=== PATIENT | female | born 1960 | race Caucasian/White ===

== ENCOUNTER → 2018-05-14 10:43 | Outpatient (CLI) | payer OTHER, SELFPAY ==
--- NOTE | 2018-05-14 | DI.MG.S_ITS ---
BILATERAL DIGITAL SCREENING MAMMOGRAM 3D/2D WITH CAD: 05/14/2018 CLINICAL: Routine screening. Comparison is made to exams dated: 04/20/2017 mammogram, 03/08/2016 mammogram, and 08/25/2015 mammogram - [facility]. The tissue of both breasts is heterogeneously dense. This may lower the sensitivity of mammography. Current study was also evaluated with a Computer Aided Detection (CAD) system. No significant masses, calcifications, or other findings are seen in either breast. There has been no significant interval change. IMPRESSION: NEGATIVE There is no mammographic evidence of malignancy. A 1 year screening mammogram is recommended. This exam was interpreted at Station ID: [id number]. NOTE: For mammograms, a report in lay terms will be sent to the patient. Approximately 15% of breast malignancies will not be visualized mammographically. In the management of a palpable breast mass, a negative mammogram must not discourage biopsy of a clinically suspicious lesion. Electronically Signed By: Obie pedersen/lizzie:05/15/2018 03:46:52 letter sent: Normal Exam ACR BI-RADS Category 1: Negative 3341F
== END ==
PROVIDERS: Family Provider Family Medicine; PCP Family Medicine; Visit Provider Family Medicine
DX: Z12.31 Encounter for screening mammogram for malignant neoplasm of breast (principal)
CPT/HCPCS: 77063; 77067

== ENCOUNTER → 2019-06-04 11:23 | Outpatient (CLI) | payer OTHER, SELFPAY ==
--- NOTE | 2019-06-04 | DI.MG.S_ITS ---
BILATERAL DIGITAL SCREENING MAMMOGRAM 3D/2D WITH CAD: 06/04/2019 CLINICAL: Routine screening. Comparison is made to exams dated: 05/14/2018 mammogram, 04/20/2017 mammogram, and 03/08/2016 mammogram - [facility]. The tissue of both breasts is heterogeneously dense. This may lower the sensitivity of mammography. Current study was also evaluated with a Computer Aided Detection (CAD) system. No significant masses, calcifications, or other findings are seen in either breast. There has been no significant interval change. IMPRESSION: NEGATIVE There is no mammographic evidence of malignancy. A 1 year screening mammogram is recommended. This exam was interpreted at Station ID: [id number]. NOTE: For mammograms, a report in lay terms will be sent to the patient. Approximately 15% of breast malignancies will not be visualized mammographically. In the management of a palpable breast mass, a negative mammogram must not discourage biopsy of a clinically suspicious lesion. Electronically Signed By: Adalgisa evans/lizzie:06/06/2019 11:11:21 letter sent: Normal Exam ACR BI-RADS Category 1: Negative 3341F
== END ==
PROVIDERS: Family Provider Family Medicine; PCP Family Medicine; Visit Provider Family Medicine
DX: Z12.31 Encounter for screening mammogram for malignant neoplasm of breast (principal)
CPT/HCPCS: 77063; 77067

== ENCOUNTER → 2019-10-28 09:08 | Outpatient (CLI) | payer OTHER, SELFPAY ==
--- NOTE | 2019-10-28 | DI.RAD.S_ITS ---
PROCEDURE: XR KNEE LT 3V INDICATIONS: LEFT KNEE PAIN TECHNIQUE: 3 views of the knee were acquired. COMPARISON: None. FINDINGS: Bones: No fractures or dislocations. No suspicious bony lesions. Slight medial compartment knee joint interspace narrowing. Soft tissues: No joint effusion. No suspicious soft tissue calcifications. 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 No effusion or loose body seen. Dictated by: Husam Guidry M.D. on 10/28/2019 at 10:56 Approved by: Husam Guidry M.D. on 10/28/2019 at 10:57
== END ==
PROVIDERS: Family Provider Family Medicine; PCP Family Medicine; Referring Provider Family Medicine; Visit Provider Family Medicine
DX: M25.562 Pain in left knee (principal); M71.22 Synovial cyst of popliteal space [Baker], left knee
CPT/HCPCS: 73562

== ENCOUNTER → 2020-06-12 11:13 | Outpatient (CLI) | payer OTHER, SELFPAY ==
--- NOTE | 2020-06-12 | DI.MG.S_ITS ---
BILATERAL DIGITAL SCREENING MAMMOGRAM 3D/2D WITH CAD: 06/12/2020 CLINICAL: Routine screening. Comparison is made to exams dated: 06/04/2019 mammogram, 05/14/2018 mammogram, and 04/20/2017 mammogram - [facility]. The tissue of both breasts is heterogeneously dense. This may lower the sensitivity of mammography. Current study was also evaluated with a Computer Aided Detection (CAD) system. There is a possible developing 0.4 cm asymmetry in the right breast posterior depth medial region seen on the craniocaudal view only. This is more prominent. No other significant masses, calcifications, or other findings are seen in either breast. IMPRESSION: INCOMPLETE: NEEDS ADDITIONAL IMAGING EVALUATION The possible developing 0.4 cm asymmetry in the right breast visualized only on the craniocaudal view is indeterminate. Additional views with possible ultrasound are recommended. This exam was interpreted at Station ID: [id number]. NOTE: For mammograms, a report in lay terms will be sent to the patient. Approximately 15% of breast malignancies will not be visualized mammographically. In the management of a palpable breast mass, a negative mammogram must not discourage biopsy of a clinically suspicious lesion. Electronically Signed By: Ayden Jackson M.D. aty/:06/14/2020 07:58:14 letter sent: Additional Imaging Needed ACR BI-RADS Category 0: Incomplete 3340F
== END ==
PROVIDERS: Family Provider Family Medicine; PCP Family Medicine; Referring Provider Family Medicine; Visit Provider Family Medicine
DX: Z12.31 Encounter for screening mammogram for malignant neoplasm of breast (principal)
CPT/HCPCS: 77063; 77067

== ENCOUNTER → 2020-07-14 09:25 | Outpatient (CLI) | payer OTHER, SELFPAY ==
--- NOTE | 2020-07-14 09:27 | DI.MG.S_ITS ---
UNILATERAL RIGHT DIGITAL DIAGNOSTIC MAMMOGRAM 3D/2D WITH ADDITIONAL VIEWS: 07/14/2020 CLINICAL: Additional evaluation requested from prior study. Comparison is made to exams dated: 06/12/2020 mammogram, 06/04/2019 mammogram, and 05/14/2018 mammogram - [facility]. The tissue of right breast is heterogeneously dense. This may lower the sensitivity of mammography. There is an oval low density asymmetry with an indistinct and circumscribed margin in the right breast posterior depth central to the nipple seen on the craniocaudal view only. No other significant masses or calcifications are seen in the breast. IMPRESSION: INCOMPLETE: NEEDS ADDITIONAL IMAGING EVALUATION The oval low density asymmetry in the right breast is indeterminate. An ultrasound is recommended. This exam was interpreted at Station ID: [id number]. NOTE: For mammograms, a report in lay terms will be sent to the patient. Approximately 15% of breast malignancies will not be visualized mammographically. In the management of a palpable breast mass, a negative mammogram must not discourage biopsy of a clinically suspicious lesion. Electronically Signed By: Andres brown/lizzie:07/14/2020 09:54:09 ACR BI-RADS Category 0: Incomplete 3340F
--- NOTE | 2020-07-14 09:27 | DI.US.S_ITS ---
LIMITED ULTRASOUND OF RIGHT BREAST: 07/14/2020 CLINICAL: Patient returns today to evaluate a focal asymmetry in the right breast. Comparison is made to exams dated: 07/14/2020 mammogram, 06/12/2020 mammogram, 06/04/2019 mammogram, and 05/14/2018 mammogram - [facility]. Color flow and real-time ultrasound of the right breast 5-6 o'clock region were performed on the areas of interest. There is a 0.5 cm x 0.3 cm x 0.2 cm oval cyst in the right breast at 5 o'clock posterior depth. This oval cyst is hypoechoic with a well-defined boundary and internal echoes. This may correlate with mammography findings. Color flow imaging demonstrates that there is no vascularity present. IMPRESSION: PROBABLY BENIGN The 0.5 cm x 0.3 cm x 0.2 cm oval cyst in the right breast is consistent with a complicated cyst and is probably benign. Follow-up mammogram and ultrasound in 6 months are recommended to demonstrate stability of the mammographic and ultrasound findings. A follow-up mammogram and an ultrasound in 6 months are recommended to demonstrate stability. This exam was interpreted at Station ID: [id number]. Electronically Signed By: Andres brown/:07/14/2020 10:28:29 letter sent: Followup Recommended Ultrasound BI-RADS: 3 Probably benign
== END ==
PROVIDERS: Family Provider Family Medicine; PCP Family Medicine; Referring Provider Family Medicine; Visit Provider Family Medicine
DX: R92.8 Other abnormal and inconclusive findings on diagnostic imaging of breast (principal); N60.01 Solitary cyst of right breast
CPT/HCPCS: 76642; 77065; G0279

== ENCOUNTER → 2020-12-08 13:25 | Outpatient (CLI) | payer OTHER, SELFPAY ==
--- NOTE | 2020-12-08 | DI.US.S_ITS ---
ULTRASOUND OF RIGHT BREAST: 12/08/2020 CLINICAL: 6 month follow-up of cysts. Comparison is made to exams dated: 12/08/2020 mammogram, 07/14/2020 ultrasound, 07/14/2020 mammogram, 06/12/2020 mammogram, 06/04/2019 mammogram, and 05/14/2018 mammogram - [facility]. Color flow and real-time ultrasound of the right breast were performed. Butt scale images of the real-time examination were reviewed. There is a 0.5 cm x 0.3 cm x 0.5 cm oval cyst in the right breast at 5 o'clock posterior depth 5 cm from the nipple. This oval cyst is hypoechoic with a well-defined boundary and internal echoes. This abnormality is not significantly changed and correlates with mammography findings. Color flow imaging demonstrates that there is no vascularity present. IMPRESSION: PROBABLY BENIGN The 0.5 cm x 0.3 cm x 0.5 cm oval cyst in the right breast is consistent with a complicated cyst and is probably benign. A follow-up bilateral mammogram and a right ultrasound in 6 months is recommended to demonstrate continued stability. Findings and recommendations were conveyed to the patient during today's evaluation. This exam was interpreted at Station ID: [id number]. Electronically Signed By: Ayden Jackson M.D. at/:12/08/2020 14:15:38 letter sent: Followup Recommended Ultrasound BI-RADS: 3 Probably benign
--- NOTE | 2020-12-08 | DI.MG.S_ITS ---
UNILATERAL RIGHT DIGITAL DIAGNOSTIC MAMMOGRAM 3D/2D SHORT-TERM FOLLOW-UP: 12/08/2020 CLINICAL: Short term follow up of the right breast. Comparison is made to exams dated: 07/14/2020 ultrasound, 07/14/2020 mammogram, and 06/12/2020 mammogram - [facility]. The tissue of right breast is heterogeneously dense. This may lower the sensitivity of mammography. The previously described oval low density asymmetry with an indistinct and circumscribed margin in the right breast posterior depth central to the nipple seen on the craniocaudal view only appears less prominent and decreased in size. No other significant masses or calcifications are seen in the breast. IMPRESSION: INCOMPLETE: NEEDS ADDITIONAL IMAGING EVALUATION The oval low density asymmetry in the right breast is indeterminate. An ultrasound is recommended for further evaluation and is scheduled to immediately follow this examination. This exam was interpreted at Station ID: [id number]. NOTE: For mammograms, a report in lay terms will be sent to the patient. Approximately 15% of breast malignancies will not be visualized mammographically. In the management of a palpable breast mass, a negative mammogram must not discourage biopsy of a clinically suspicious lesion. Electronically Signed By: Ayden Jackson M.D. aty/:12/08/2020 13:53:44 ACR BI-RADS Category 0: Incomplete 3340F
== END ==
PROVIDERS: Family Provider Family Medicine; PCP Family Medicine; Referring Provider Family Medicine; Visit Provider Family Medicine
DX: R92.8 Other abnormal and inconclusive findings on diagnostic imaging of breast (principal); N60.01 Solitary cyst of right breast
CPT/HCPCS: 76642; 77065; G0279

== ENCOUNTER → 2020-12-10 13:20 | Outpatient (CLI) | payer OTHER, SELFPAY ==
[2020-12-10] MEDS: COVID-19 VACC #1, MRNA(MOD) 100 MCG/0.5 ML VIAL IM (13:30)
== END ==
PROVIDERS: Family Provider Family Medicine; PCP Family Medicine; Visit Provider Internal Medicine
DX: Z23 Encounter for immunization (principal)
CPT/HCPCS: 0011A; 91301

== ENCOUNTER → 2021-01-07 13:14 | Outpatient (CLI) | payer OTHER, SELFPAY ==
[2021-01-07] MEDS: COVID-19 VACC #2, MRNA(MOD) 100 MCG/0.5 ML VIAL IM (13:34)
== END ==
PROVIDERS: Family Provider Family Medicine; PCP Family Medicine; Visit Provider Internal Medicine
DX: Z23 Encounter for immunization (principal)
CPT/HCPCS: 0012A; 91301

== ENCOUNTER → 2021-06-10 09:18 | Outpatient (CLI) | payer OTHER, SELFPAY ==
--- NOTE | 2021-06-10 | DI.MG.S_ITS ---
BILATERAL DIGITAL DIAGNOSTIC MAMMOGRAM 3D/2D: 06/10/2021 CLINICAL: Short term follow up of the right breast, due for bilateral imaging. Comparison is made to exams dated: 12/08/2020 mammogram, 07/14/2020 mammogram, and 06/12/2020 mammogram - [facility]. The tissue of both breasts is heterogeneously dense. This may lower the sensitivity of mammography. There is a benign oval asymmetry in the right breast posterior depth central to the nipple seen on the craniocaudal view only. This is less prominent and decreased in size. No other significant masses, calcifications, or other findings are seen in either breast. IMPRESSION: BENIGN There is no mammographic evidence of malignancy. Return to annual mammogram screening schedule is recommended. This exam was interpreted at Station ID: [id number]. NOTE: For mammograms, a report in lay terms will be sent to the patient. Approximately 15% of breast malignancies will not be visualized mammographically. In the management of a palpable breast mass, a negative mammogram must not discourage biopsy of a clinically suspicious lesion. Electronically Signed By: Burke Jackson M.D., jr/lizzie:06/10/2021 09:45:23 letter sent: Normal Exam ACR BI-RADS Category 2: Benign Finding(s) 3342F
== END ==
PROVIDERS: Family Provider Family Medicine; PCP Family Medicine; Referring Provider Family Medicine; Visit Provider Family Medicine
DX: N60.19 Diffuse cystic mastopathy of unspecified breast (principal)
CPT/HCPCS: 77066; G0279

== ENCOUNTER → 2022-06-12 11:14 | Outpatient (CLI) | payer OTHER, SELFPAY ==
--- NOTE | 2022-06-12 | DI.MG.S_ITS ---
BILATERAL DIGITAL SCREENING MAMMOGRAM 3D/2D WITH CAD: 06/12/2022 CLINICAL: Routine screening. Comparison is made to exams dated: 06/10/2021 mammogram, 12/08/2020 mammogram, 07/14/2020 mammogram, 06/12/2020 mammogram, and 06/04/2019 mammogram - [facility]. Both breasts are heterogeneously dense, which may obscure small masses (category c / 51-75% glandular tissue). Current study was also evaluated with a Computer Aided Detection (CAD) system. There is a possible developing asymmetry in the left breast at 6 o'clock anterior depth. No other significant masses, calcifications, or other findings are seen in either breast. IMPRESSION: INCOMPLETE: NEEDS ADDITIONAL IMAGING EVALUATION The possible developing asymmetry in the left breast is indeterminate. Additional views with possible ultrasound are recommended. Based on the Tyrer Cuzick model (a risk assessment model) the patient's lifetime risk is 8.8% and her 10 year risk is 3.8%. According to the ACR, ACS, and NCCN guidelines, an annual breast MRI exam along with mammogram is recommended if the patient's lifetime risk is 20% or greater. This exam was interpreted at Station ID: [id number]. NOTE: For mammograms, a report in lay terms will be sent to the patient. Approximately 15% of breast malignancies will not be visualized mammographically. In the management of a palpable breast mass, a negative mammogram must not discourage biopsy of a clinically suspicious lesion. Electronically Signed By: Burke Jackson M.D., jr/lizzie:06/12/2022 11:51:46 letter sent: Additional Imaging Needed ACR BI-RADS Category 0: Incomplete 3340F
== END ==
PROVIDERS: Family Provider Family Medicine; PCP Family Medicine; Referring Provider Family Medicine; Visit Provider Family Medicine
DX: Z12.31 Encounter for screening mammogram for malignant neoplasm of breast (principal); R92.8 Other abnormal and inconclusive findings on diagnostic imaging of breast
CPT/HCPCS: 77063; 77067

== ENCOUNTER → 2022-06-26 09:38 | Outpatient (CLI) | payer OTHER, SELFPAY ==
[2022-06-26 10:29] LABS: COVID19 -Nasal RAPID Negative (Negative)
== END ==
PROVIDERS: Family Provider Family Medicine; PCP Family Medicine; Visit Provider Surgery
DX: Z20.822 Contact with and (suspected) exposure to COVID-19 (principal); Z01.812 Encounter for preprocedural laboratory examination
CPT/HCPCS: 87635; C9803

== ENCOUNTER 2022-06-27 08:49 | Day surgery (SDC) | payer OTHER, SELFPAY ==
[2022-06-27 09:09] VITALS: BP 156/62; PULSE 110; RESP 16; TEMP 37.2; O2SAT 97; BMI 24.3
--- NOTE | 2022-06-27 09:25 | PM.PREOP ---
Pre-operative Note Interval Note History & Physical reviewed/Exam performed by Physician: Yes Changes to H&P: No
[2022-06-27] MEDS: LACTATED RINGERS 1,000 ML 200 ML IV (09:26)
[2022-06-27] MEDS: ONDANSETRON 4 MG/2 ML INJ IV (09:55)
[2022-06-27] MEDS: MIDAZOLAM 5 MG/5 ML VIAL 6 MG IV (09:58)
[2022-06-27] MEDS: fentaNYL 100 MCG/2 ML INJ 200 MCG IV (09:58)
--- NOTE | 2022-06-27 09:59 | PM.OP.COLON ---
Operative Date/Time/Diagnoses Date of procedure: 06/27/22 Time of procedure: 09:59 Pre-op diagnosis: Rectal bleeding Procedure & Clinicians Study performed: Colonoscopy Same procedure as scheduled: Yes Indications: Rectal bleeding Surgeon: Jason Venegas Procedure Notes Procedure in detail: Medications: Conscious sedation using 6mg IV midazolam and 200mcg IV of fentanyl The history and physical was performed/updated and the patient is ASA class is 2. The procedure was discussed in detail with the patient. Potential risks complications including infection, bleeding, missed diagnosis, perforation, need for surgery, and were explained. Their questions were answered and informed consent was obtained. Patient was brought to the procedure room and placed standard monitoring equipment. The patient's vital signs were monitored continuously throughout the entire procedure. Prior to starting time-out was performed. The patient was placed in the left lateral recumbent position. Procedural sedation was administered. Examination began with a thorough inspection of the perianal area there was no evidence of fissures, fistulae, external hemorrhoids or cutaneous malignancy. The colonoscopy scope was then placed into the anal canal and was advanced to the cecum, which was identified by the ileocecal valve, the appendiceal orifice and the confluence of the taenia. The scope was then slowly withdrawn examining colon thoroughly in all directions, irrigating it of any residual stool. FINDINGS 1. No masses or polyps 2. Internal hemorrhoids grade 1. Insufficient tissue for hemorrhoidal banding 3. Diverticulosis The patient tolerated the procedure well. They will be discharged once criteria are met. The prep was of good/excellent quality. The withdrawl time was 8 minutes. The sedation time was 23 minutes. Specimen(s): none sent Complications: none Impression: Normal colonoscopy Post-procedure Recommendations: Colonoscopy in 10 years and High fiber diet Disposition: same day surgery
[2022-06-27 10:25] VITALS: BP 119/58; PULSE 95; RESP 18; TEMP 36.2; O2SAT 97
[2022-06-27 10:30] VITALS: BP 97/57; PULSE 87; RESP 10; O2SAT 95
[2022-06-27 10:35] VITALS: BP 107/60; PULSE 81; RESP 10; O2SAT 96
[2022-06-27 10:38] VITALS: BP 124/73; PULSE 91; RESP 13; TEMP 36.2; O2SAT 95
== END 2022-06-27 11:00 | disposition home or self-care (01) ==
PROVIDERS: Family Provider Family Medicine; PCP Family Medicine; Referring Provider Surgery; Visit Provider Surgery
PROC: 0DJD8ZZ Inspection of Lower Intestinal Tract, Via Natural or Artificial Opening Endoscopic (ICD-10-PCS; CPT 45378; principal; 2022-06-27 10:00)
DX: K62.5 Hemorrhage of anus and rectum (principal); K57.30 Diverticulosis of large intestine without perforation or abscess without bleeding; K64.0 First degree hemorrhoids
CPT/HCPCS: 45378; 99152; 99153; J2250; J2405; J3010

== ENCOUNTER → 2022-06-28 10:09 | Outpatient (CLI) | payer OTHER, SELFPAY ==
--- NOTE | 2022-06-28 | DI.US.S_ITS ---
LIMITED ULTRASOUND OF LEFT BREAST: 06/28/2022 CLINICAL: Patient returns today to evaluate focal asymmetries in the left breast. Comparison is made to exams dated: 06/12/2022 mammogram, 06/10/2021 mammogram, 06/12/2020 mammogram, 06/04/2019 mammogram, 05/14/2018 mammogram, and 04/20/2017 mammogram - [facility]. Color flow and real-time ultrasound of the left breast 3-6 o'clock region were performed. Butt scale images of the real-time examination were reviewed. No suspicious abnormalities were seen sonographically in the left breast. The asymmetry seen on the preceding mammogram corresponds to a simple cyst measuring 6 mm at the 5:00 position. IMPRESSION: NEGATIVE There is no sonographic evidence of malignancy. A 1 year screening mammogram is recommended. This exam was interpreted at Station ID: [id number]. Electronically Signed By: Burke Jackson M.D. jr/:06/28/2022 14:26:56 letter sent: Normal Exam Ultrasound BI-RADS: 1 Negative
--- NOTE | 2022-06-28 10:12 | DI.MG.S_ITS ---
UNILATERAL LEFT DIGITAL DIAGNOSTIC MAMMOGRAM 3D/2D WITH ADDITIONAL VIEWS: 06/28/2022 CLINICAL: Additional evaluation requested from prior study. Comparison is made to exams dated: 06/12/2022 mammogram, 06/10/2021 mammogram, and 06/12/2020 mammogram - [facility]. The left breast is heterogeneously dense, which may obscure small masses (category c / 51-75% glandular tissue). There is a stable equal density asymmetry in the left breast at 6 o'clock anterior depth. No other significant masses or calcifications are seen in the breast. IMPRESSION: INCOMPLETE: NEEDS ADDITIONAL IMAGING EVALUATION The stable equal density asymmetry in the left breast most likely is a cyst and is indeterminate. An ultrasound is recommended. Based on the Tyrer Cuzick model (a risk assessment model) the patient's lifetime risk is 8.8% and her 10 year risk is 3.8%. According to the ACR, ACS, and NCCN guidelines, an annual breast MRI exam along with mammogram is recommended if the patient's lifetime risk is 20% or greater. This exam was interpreted at Station ID: [id number]. NOTE: For mammograms, a report in lay terms will be sent to the patient. Approximately 15% of breast malignancies will not be visualized mammographically. In the management of a palpable breast mass, a negative mammogram must not discourage biopsy of a clinically suspicious lesion. Electronically Signed By: Burke Jackson M.D., jr/lizzie:06/28/2022 14:25:25 ACR BI-RADS Category 0: Incomplete 3340F
== END ==
PROVIDERS: Family Provider Family Medicine; PCP Family Medicine; Referring Provider Family Medicine; Visit Provider Family Medicine
DX: R92.8 Other abnormal and inconclusive findings on diagnostic imaging of breast (principal); N64.89 Other specified disorders of breast
CPT/HCPCS: 76642; 77065; G0279

== ENCOUNTER → 2023-06-15 11:22 | Outpatient (CLI) | payer BC, SELFPAY ==
--- NOTE | 2023-06-15 11:24 | DI.MG.S_ITS ---
BILATERAL DIGITAL SCREENING MAMMOGRAM 3D/2D WITH CAD: 06/15/2023 CLINICAL: Routine screening. Comparison is made to exams dated: 06/12/2022 mammogram, 06/10/2021 mammogram, and 06/12/2020 mammogram - [facility]. Both breasts are heterogeneously dense, which may obscure small masses (category c / 51-75% glandular tissue). Current study was also evaluated with a Computer Aided Detection (CAD) system. There are benign masses in both breasts. No significant masses, calcifications, or other findings are seen in either breast. There has been no significant interval change. IMPRESSION: BENIGN There is no mammographic evidence of malignancy. A 1 year screening mammogram is recommended. Based on the Tyrer Cuzick model (a risk assessment model) the patient's lifetime risk is 8.6% and her 10 year risk is 3.8%. According to the ACR, ACS, and NCCN guidelines, an annual breast MRI exam along with mammogram is recommended if the patient's lifetime risk is 20% or greater. This exam was interpreted at Station ID: [id number]. NOTE: For mammograms, a report in lay terms will be sent to the patient. Approximately 15% of breast malignancies will not be visualized mammographically. In the management of a palpable breast mass, a negative mammogram must not discourage biopsy of a clinically suspicious lesion. Electronically Signed By: Skyler serrano/lizzie:06/15/2023 17:05:27 letter sent: Normal Exam ACR BI-RADS Category 2: Benign Finding(s) 3342F
== END ==
PROVIDERS: Family Provider Family Medicine; PCP Family Medicine; Referring Provider Family Medicine; Visit Provider Family Medicine
DX: Z12.31 Encounter for screening mammogram for malignant neoplasm of breast (principal)
CPT/HCPCS: 77063; 77067

== ENCOUNTER → 2023-06-26 09:24 | Outpatient (CLI) | payer BC, SELFPAY ==
[2023-06-26 09:57] LABS: Add Manual Diff / Slide Review NO; Basophils Absolute Auto 0 /uL (0-100); Basophils Percent Auto 0.7 % (0-2); Eosinophils Absolute Auto 200 /uL (0-450); Eosinophils Percent Auto 3.8 % (2-4); Hematocrit 41.4 % (36-46); Hemoglobin 13.8 g/dL (12.0-16.0); Lymphocytes Absolute Auto 1300 /uL (1100-4500); Lymphocytes Percent Auto 29.5 % (25-40); Mean Corpuscular HGB Conc 33.3 % (30-36); Mean Corpuscular Hemoglobin 30.4 PG (26-34); Mean Corpuscular Volume 91.3 fL (80-100); Monocytes Absolute Auto 300 /uL (0-900); Neutrophils Absolute Auto 2600 /uL (1500-7000); Platelet Count 266 X10^3/uL (150-400); Red Blood Cell Count 4.54 X10^6/uL (4.0-5.2); Red Cell Distribution Width 12.7 % (11.6-14.8); White Blood Cell Count 4.4 X10^3/uL (4.5-11.0)
[2023-06-26 10:08] LABS: Hemoglobin A1C% w Est Avg Glu 5.3 % (4.0-6.0)
[2023-06-26 10:47] LABS: Alanine Aminotransferase 22 IU/L (<35); Albumin 4.3 g/dL (3.5-5.0); Albumin Globulin Ratio 1.5 (1.0-2.8); Alkaline Phosphatase 77 U/L (38-126); Aspartate Aminotransferase 23 IU/L (14-36); BUN Creatinine Ratio 19.7 (6-22); Bilirubin Total 0.8 mg/dL (0.2-1.3); Blood Urea Nitrogen 12 mg/dL (7-17); C-Reactive Protein Quant < 0.5 mg/dL (<1.0); Calcium 9.4 mg/dL (8.4-10.2); Carbon Dioxide 27 mmol/L (22-32); Chloride 104 mmol/L (98-107); Cholesterol 207 mg/dL (140-199); Estimated Glomerular Filt Rate > 60 mL/min (>60); Globulin 2.9 g/dL (1.7-4.1); Glucose 95 mg/dL (80-110); HDL Cholesterol 50 mg/dL (40-60); HEMOLYSIS < 15 (0-50); LDL Cholesterol Calculated 132 mg/dL (<100); Potassium 4.1 mmol/L (3.4-5.1); Sodium 138 mmol/L (137-145); Total Protein 7.2 g/dL (6.3-8.2); Triglycerides 123 mg/dL (35-150)
[2023-06-26 10:59] LABS: Free T3, Triiodothyronine Free 4.53 pg/mL (2.77-5.27); Free T4, Direct Thyroxine 0.98 ng/dL (0.78-2.19)
[2023-06-26 11:12] LABS: Thyroid Stimulating Hormone 0.881 uIU/mL (0.47-4.68)
== END ==
PROVIDERS: Family Medicine; Family Provider Family Medicine; PCP Family Medicine; Referring Provider Family Medicine; Visit Provider Family Medicine
DX: Z01.89 Encounter for other specified special examinations (principal)
CPT/HCPCS: 36415; 80053; 80061; 83036; 84439; 84443; 84481; 85025; 86140

== ENCOUNTER → 2024-01-12 08:26 | Outpatient (CLI) | payer BC, SELFPAY ==
[2024-01-12 09:46] LABS: Amorphous Sediment Urine 1+; Bacteria Urine Occasional (0-1); RBC Urine 0-1/HPF (0-5/HPF); Squamous Epithelial Cell Urine 1-5 /HPF (0-5/HPF); Urine Volume 10mL (spun); WBC Urine 1-5/HPF (0-5/HPF)
[2024-01-12 09:47] LABS: Culture Indicated Urine Cult Not Indicated
== END ==
PROVIDERS: Family Provider Family Medicine; PCP Family Medicine; Visit Provider Physician Assistant Medical
DX: N39.0 Urinary tract infection, site not specified (principal)
CPT/HCPCS: 81015

== ENCOUNTER → 2024-05-07 09:59 | Outpatient (CLI) | payer BC, SELFPAY ==
[2024-05-07 10:54] LABS: Appearance Urine UA CLEAR; Bilirubin Urine UA NEGATIVE (NEGATIVE); Color Urine UA YELLOW; Glucose Urine UA NEGATIVE (Negative); Ketones Urine UA NEGATIVE (NEGATIVE); Leukocyte Esterase Urine UA 1+ (NEGATIVE); Nitrite Urine UA NEGATIVE (Negative); Occult Blood Urine UA NEGATIVE (Negative); Protein Urine UA NEGATIVE (Negative); Specific Gravity Urine UA <=1.005 (1.000-1.035); Urobilinogen Urine UA 0.2 E.U./dL (0.2)
[2024-05-07 10:56] LABS: Add Manual Diff / Slide Review NO; Basophils Absolute Auto 0 /uL (0-100); Basophils Percent Auto 0.7 % (0-2); Eosinophils Absolute Auto 200 /uL (0-450); Eosinophils Percent Auto 3.3 % (2-4); Hematocrit 42.2 % (36-46); Lymphocytes Absolute Auto 1500 /uL (1100-4500); Lymphocytes Percent Auto 30.6 % (25-40); Mean Corpuscular HGB Conc 33.2 % (30-36); Mean Corpuscular Hemoglobin 30.5 PG (26-34); Mean Corpuscular Volume 91.6 fL (80-100); Monocytes Absolute Auto 300 /uL (0-900); Monocytes Percent Auto 7.1 % (3-14); Neutrophils Absolute Auto 2800 /uL (1500-7000); Neutrophils Percent Auto 58.3 % (50-75); Platelet Count 251 X10^3/uL (150-400); Red Cell Distribution Width 12.9 % (11.6-14.8); Urine Volume 10mL (spun); White Blood Cell Count 4.7 X10^3/uL (4.5-11.0); pH Urine UA 6.5 (4.5-8.0)
[2024-05-07 10:59] LABS: Bacteria Urine None Seen; Culture Indicated Urine Specimen Cultured; RBC Urine None Seen (0-5/HPF); Squamous Epithelial Cell Urine 0-1 /HPF (0-5/HPF); WBC Urine 1-5/HPF (0-5/HPF)
[2024-05-07 11:05] LABS: Hemoglobin A1C% w Est Avg Glu 5.3 % (4.0-6.0)
[2024-05-07 11:11] LABS: Alanine Aminotransferase 16 IU/L (<35); Albumin 4.5 g/dL (3.5-5.0); Albumin Globulin Ratio 1.6 (1.0-2.8); Alkaline Phosphatase 86 U/L (38-126); Aspartate Aminotransferase 22 IU/L (14-36); BUN Creatinine Ratio 18.8 (6-22); Bilirubin Total 0.7 mg/dL (0.2-1.3); Blood Urea Nitrogen 12 mg/dL (7-17); Calcium 9.5 mg/dL (8.4-10.2); Carbon Dioxide 28 mmol/L (22-32); Chloride 109 mmol/L (98-107); Cholesterol 193 mg/dL (140-199); Estimated Glomerular Filt Rate > 60 mL/min (>60); Globulin 2.8 g/dL (1.7-4.1); Glucose 96 mg/dL (80-110); HDL Cholesterol 49 mg/dL (40-60); HEMOLYSIS < 15 (0-50); LDL Cholesterol Calculated 120 mg/dL (<100); Potassium 4.6 mmol/L (3.4-5.1); Sodium 141 mmol/L (137-145); Total Protein 7.3 g/dL (6.3-8.2); Triglycerides 122 mg/dL (35-150)
[2024-05-07 11:29] LABS: High Sensitivity CRP - Cardiac 0.6 mg/L (1.0-3.0)
[2024-05-07 11:40] LABS: TSH w/ Reflex to FT4 0.78 uIU/mL (0.47-4.68)
== END ==
PROVIDERS: Family Provider Family Medicine; PCP Family Medicine; Referring Provider Family Medicine; Visit Provider Family Medicine
DX: E78.5 Hyperlipidemia, unspecified (principal); R53.83 Other fatigue; D64.9 Anemia, unspecified; R73.9 Hyperglycemia, unspecified; N39.0 Urinary tract infection, site not specified
CPT/HCPCS: 36415; 80053; 80061; 81001; 83036; 84443; 85025; 86140; 87077; 87086

== ENCOUNTER → 2024-06-19 17:42 | Outpatient (CLI) | payer BC, SELFPAY ==
--- NOTE | 2024-06-19 17:43 | DI.MG.S_ITS ---
BILATERAL DIGITAL SCREENING MAMMOGRAM 3D/2D WITH CAD: 06/19/2024 CLINICAL: Routine screening. Comparison is made to exams dated: 06/15/2023 mammogram, 06/12/2022 mammogram, 06/10/2021 mammogram, 06/28/2022 mammogram, 12/08/2020 mammogram, and 07/14/2020 mammogram - [facility]. The breasts are heterogeneously dense, which may obscure small masses (category c / 51-75% glandular tissue). Current study was also evaluated with a Computer Aided Detection (CAD) system. There are benign masses in both breasts. No significant masses, calcifications, or other findings are seen in either breast. There has been no significant interval change. IMPRESSION: BENIGN There is no mammographic evidence of malignancy. A 1 year screening mammogram is recommended. Based on the Tyrer Cuzick model (a risk assessment model) the patient's lifetime risk is 8.3% and her 10 year risk is 3.8%. According to the ACR, ACS, and NCCN guidelines, an annual breast MRI exam along with mammogram is recommended if the patient's lifetime risk is 20% or greater. This exam was interpreted at Station ID: [id number]. NOTE: For mammograms, a report in lay terms will be sent to the patient. Approximately 15% of breast malignancies will not be visualized mammographically. In the management of a palpable breast mass, a negative mammogram must not discourage biopsy of a clinically suspicious lesion. Electronically Signed By: Romelia Nieves M.D., Ph.D. jossie/lizzie:06/24/2024 01:12:21 letter sent: Normal Exam ACR BI-RADS Category 2: Benign
== END ==
LOC: MAMMO 17:43
PROVIDERS: Family Provider Family Medicine; PCP Family Medicine; Referring Provider Family Medicine; Visit Provider Family Medicine
DX: Z12.31 Encounter for screening mammogram for malignant neoplasm of breast (principal); R92.333 Mammographic heterogeneous density, bilateral breasts
CPT/HCPCS: 77063; 77067

== ENCOUNTER → 2024-07-31 09:46 | Outpatient (CLI) | payer BC, SELFPAY | PROVIDERS: Family Provider Family Medicine; PCP Family Medicine; Visit Provider Physician Assistant | DX: J02.9 Acute pharyngitis, unspecified (principal) | CPT/HCPCS: 87070 ==

== ENCOUNTER 2025-01-31 18:57 | Emergency (ER) | payer MEDICARE, OTHER, SELFPAY ==
[2025-01-31] VITALS (11 sets, daily range): BP systolic 130–179; BP diastolic 58–74; PULSE 81–98; RESP 16–22; TEMP 36.2; O2SAT 94–97; BMI 24.0
--- NOTE | 2025-01-31 19:01 | DI.RAD.S_ITS ---
PROCEDURE: XR FOREARM LT 2V INDICATIONS: fall/pain/deformity TECHNIQUE: 2 views of the forearm were acquired. COMPARISON: None. FINDINGS: Acute, comminuted distal radial diaphyseal fracture with intra-articular extension to the radiocarpal and distal radioulnar joints as well as dorsal angulation. Additional acute, minimally displaced fracture of the radial head and potentially the coronoid process of the ulna with intra-articular extension. IMPRESSION: Acute fractures of the distal radius and radial head, and possibly the coronoid process of the ulna. Dedicated wrist and elbow radiographs recommended. Dictated by: Michelet Jain M.D. on 01/31/2025 at 19:41 Approved by: Michelet Jain M.D. on 01/31/2025 at 19:45
--- NOTE | 2025-01-31 19:01 | DI.RAD.S_ITS ---
PROCEDURE: XR WRIST LT MIN 3V INDICATIONS: fall/pain/deformity TECHNIQUE: 3 views of the wrist were acquired. COMPARISON: None. FINDINGS: Diffuse osseous demineralization. Acute, comminuted impacted, transversely oriented fracture of the distal radial metadiaphysis with intra-articular extension and dorsal angulation of the dominant distal fracture fragment. The scapholunate interval is preserved. 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 IMPRESSION: Acute, comminuted distal radial fracture with intra-articular extension and dorsal angulation. Dictated by: Michelet Jain M.D. on 01/31/2025 at 19:45 Approved by: Michelet Jain M.D. on 01/31/2025 at 19:46
[2025-01-31] MEDS: fentaNYL 100 MCG/2 ML INJ 50 MCG IV (20:35)
--- NOTE | 2025-01-31 20:59 | ED.UPPEXIN ---
HPI - Extremity Injury (Upper) General Chief Complaint: Extremity Injury, Upper Stated Complaint: fall, arm injury, no blood thinners Time Seen by Provider: 01/31/25 19:57 Source: patient Mode of arrival: Ambulatory History of Present Illness HPI narrative: 64-year-old female fell at home garage from short height trying to remove things from shelving, fell to the side with left arm extended, complains of deformity and pain to the left wrist. No other injuries. She had not strike her head. No nausea or vomiting. No neck pain. No chest or truncal pain. No abdominal pain. No lower extremity pain. She does not seem to have pain to the proximal left arm, elbow, shoulder, clavicle. Related Data Home Medications Medication Instructions Recorded Confirmed multivitamin 1 tab PO DAILY 06/23/22 11/26/24 cholecalciferol (vitamin D3) 50 100 mcg PO DAILY 07/03/23 11/26/24 mcg (2,000 unit) capsule clobetasol 0.05 % topical ointment 1 applic topical DAILY PRN 09/04/24 11/26/24 Previous Rx's Medication Instructions Recorded estradiol 0.01% (0.1 mg/gram) 1 g vaginal QWEEK #42.5 grams 11/20/23 vaginal cream hydrocortisone 2.5 % topical cream 1 applic IL QD-BID PRN hemorrhoids 05/28/24 with perineal applicator #30 grams (Anusol-HC) benzonatate 200 mg capsule 200 mg PO TID PRN cough #30 caps 07/31/24 fluticasone propionate 50 1 spray intranasal DAILY #16 grams 07/31/24 mcg/actuation nasal spray,suspension (Flonase Allergy Relief) guaifenesin 1,200 mg tablet, 1,200 mg PO Q12H #30 tabs 07/31/24 extended release 12 hr ibuprofen 800 mg tablet 800 mg PO Q8H #30 tabs 07/31/24 clobetasol 0.05 % topical ointment 1 applic topical DAILY #30 grams 09/08/24 hydrocodone 5 mg-acetaminophen 325 1 tab PO Q6H PRN pain #14 tabs 0510/25 mg tablet hydrocodone 5 mg-acetaminophen 325 1 tab PO Q6H PRN pain #14 tabs 0510/25 mg tablet Allergies Allergy/AdvReac Type Severity Reaction Status Date / Time aspirin Allergy Mild Verified 11/26/24 10:47 Penicillins Allergy Mild Verified 11/26/24 10:47 Sulfa (Sulfonamide Allergy Mild Verified 11/26/24 10:47 Antibiotics) Patient History Medical History (Updated 01/31/25 @ 22:08 by Alvarado Mcgee MD) Viral enteritis (01/05/06) Breast cancer screening by mammogram (04/17/03) Screening for malignant neoplasm of colon performed (11/17/05) Pap smear for cervical cancer screening (04/17/03) Routine medical exam (04/17/03) Routine gynecological examination (11/17/05) Influenza vaccine administered (08/31/03) Abnormal glandular Pap smear of vagina (07/22/02) Ingrown right big toenail Allergies Migraines (~2006) Chicken pox (~1969) Fibroids Endometriosis Diverticulosis Diverticular disease (~2021) Surgical History (Updated 04/15/23 @ 19:06 by Taryn Martin) Anesthesia History of hernia surgery (~02/04/13) History of surgery (~2012) History of endometrial ablation (~10/09/14) History of third molar tooth extraction Status post colonoscopy Family History (Updated 04/15/23 @ 19:10 by Taryn Martin) Father Hypertension History of heart disease Hyperlipidemia Heart valve replaced H/O heart bypass surgery Grandfather Stroke Grandfather History of heart disease Grandmother History of heart disease Social History marital status: details: lives with and with/raising grandchild household members: spouse and other lives independently: Yes occupational status: previously employed Smoking Status: Never smoker alcohol intake: never Smoking Status: Never smoker Exam Narrative Exam Narrative: GENERAL: Well-developed patient, in mild distress. HEAD: Atraumatic. Normocephalic. EYES: Pupils equal round and reactive. Extraocular motions intact. No scleral icterus. No injection or drainage. ENT: Nose without bleeding, purulent drainage. Throat without erythema, tonsillar hypertrophy or exudate. Airway patent. NECK: Trachea midline. Non tender CARDIOVASCULAR: Regular rate and rhythm without murmurs, gallops, or rubs. RESPIRATORY: Clear to auscultation. Breath sounds equal bilaterally. No wheezes, rales, or rhonchi. GASTROINTESTINAL: Abdomen soft, non-tender, nondistended. EXTREMITIES: Tenderness with dinner fork deformity left distal wrist closed, good cap refill fingers, no tenderness fingers. No tenderness to mid proximal forearm, elbow, upper arm, shoulder, clavicle. BACK: Nontender without deformity or crepitance. No flank tenderness. NEURO: AOx3. Motor functions grossly nonfocal SKIN: No rash or erythema of visible areas Initial Vital Signs Initial Vital Signs: Vital Signs Temperature 97.2 F L 01/31/25 18:59 Pulse Rate 98 H 01/31/25 18:59 Respiratory Rate 16 01/31/25 18:59 Blood Pressure 162/74 H 01/31/25 18:59 Pulse Oximetry 96 01/31/25 18:59 Oxygen Delivery Method Room Air 01/31/25 18:59 Procedures Orthopedic Fracture Reduction Fracture #1: Time of procedure: 20:30 Side: left Fracture Reduction Location: radius (Left distal Colles fracture) Analgesia: procedural sedation Technique: direct manipulation and traction/counter-traction Post Reduction X-rays Demonstrate: acceptable reduction Post-reduction neuro exam: intact Post-reduction vascular exam: intact Splint Applied: Yes Patient Tolerated Procedure: Well Procedural Sedation Time of procedure: 21:43 Consent signed: Yes Indication: fracture/dislocation reduction Presedation Evaluation: Tolerated IV propofol boluses for reduction splinting left Colles wrist fracture ASA Class: I Mallampati Airway Classification: Class I Time of Last PO Intake: 13:00 Preparation: associate professor of theatre applied, pulse oximeter, capnometry used, suction/airway equipment at bedside and IV secured IV Propofol dose (mg): 120 ED Sedation Level: Moderate (Concious) Patient Tolerated Procedure: Well Complications: none Additional Comments: No airway interventions required, no desaturations, mental status returned to preprocedural baseline. Course Orders Ordered: ED Orders 01/31/25 19:01 XR forearm LT 2V Stat XR wrist LT min 3V Stat 01/31/25 21:40 XR wrist LT min 3V Stat Discontinued Medications Hydrocodone Bitart/Acetaminophen (Hydrocodone/Acet 5/325 Tablet) 1 tab PO NOW ONE Stop: 01/31/25 22:01 Last Admin: 01/31/25 22:12 Dose: 1 tab Documented By: CHIKIS Hydrocodone Bitart/Acetaminophen (Hydrocodone/Acet 5/325 Prepack) 1 bottle MISC DIRECTED ONE Stop: 01/31/25 22:01 Last Admin: 01/31/25 22:13 Dose: 1 bottle Documented By: CHIKIS Fentanyl (Fentanyl 100 Mcg/2 Ml Inj) 50 mcg IV NOW ONE Stop: 01/31/25 19:59 Last Admin: 01/31/25 20:35 Dose: 50 mcg Documented By: CHIKIS Propofol (Propofol 200 Mg/20 Ml Vial) 200 mg IV NOW ONE Stop: 01/31/25 20:00 Last Admin: 01/31/25 21:30 Dose: 120 mg Documented By: CHIKIS Vital Signs Vital signs: Vital Signs - 8 hr 01/31/25 18:59 01/31/25 20:26 01/31/25 20:30 Temperature 97.2 F L Pulse Rate 98 H 90 Respiratory Rate 16 Blood Pressure 162/74 H 161/72 H Pulse Oximetry 96 96 Oxygen Delivery Method Room Air 01/31/25 20:30 01/31/25 21:00 01/31/25 21:00 Temperature Pulse Rate 92 H 85 Respiratory Rate 22 21 Blood Pressure 142/64 H Pulse Oximetry 97 95 Oxygen Delivery Method 01/31/25 21:25 01/31/25 21:25 01/31/25 21:30 Temperature Pulse Rate 90 94 H Respiratory Rate 19 18 Blood Pressure 179/74 H Pulse Oximetry 97 96 Oxygen Delivery Method 01/31/25 21:39 01/31/25 21:39 01/31/25 21:40 Temperature Pulse Rate 85 Respiratory Rate 20 Blood Pressure 145/64 H 130/58 L Pulse Oximetry 94 Oxygen Delivery Method 01/31/25 21:40 01/31/25 21:45 01/31/25 21:45 Temperature Pulse Rate 88 85 Respiratory Rate 17 20 Blood Pressure 130/60 Pulse Oximetry 95 94 Oxygen Delivery Method 01/31/25 21:50 01/31/25 21:50 01/31/25 21:55 Temperature Pulse Rate 81 Respiratory Rate 18 Blood Pressure 133/60 132/61 Pulse Oximetry 94 Oxygen Delivery Method 01/31/25 21:55 Temperature Pulse Rate 85 Respiratory Rate 22 Blood Pressure Pulse Oximetry 94 Oxygen Delivery Method MDM - Extremity Injury (Upper) Lab Data Labs: Point of Care Testing Test Results Not applicable Imaging Data Extremity x-ray #1: Radiologist's Impression: [address] [address] XRay Report Signed Patient: Silvia Martin MR#: [id number] : 1960 Acct:[id number] Age/Sex: 64 / F Date of Service: 01/31/25 Loc: ED Accession Number: [id number] Procedure: XR wrist LT min 3V Ordering Provider: Alvarado Mcgee MD PROCEDURE: XR WRIST LT MIN 3V INDICATIONS: fall/pain/deformity TECHNIQUE: 3 views of the wrist were acquired. COMPARISON: None. FINDINGS: Diffuse osseous demineralization. Acute, comminuted impacted, transversely oriented fracture of the distal radial metadiaphysis with intra-articular extension and dorsal angulation of the dominant distal fracture fragment. The scapholunate interval is preserved. 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 IMPRESSION: Acute, comminuted distal radial fracture with intra-articular extension and dorsal angulation. Dictated by: Michelet Jain M.D. on 01/31/2025 at 19:45 Approved by: Michelet Jain M.D. on 01/31/2025 at 19:46 Extremity x-ray #2: Radiologist's Impression: [address] [address] XRay Report Signed Patient: Silvia Martin MR#: [id number] : 1960 Acct:[id number] Age/Sex: 64 / F Date of Service: 01/31/25 Loc: ED Accession Number: [id number] Procedure: XR forearm LT 2V Ordering Provider: Alvarado Mcgee MD PROCEDURE: XR FOREARM LT 2V INDICATIONS: fall/pain/deformity TECHNIQUE: 2 views of the forearm were acquired. COMPARISON: None. FINDINGS: Acute, comminuted distal radial diaphyseal fracture with intra-articular extension to the radiocarpal and distal radioulnar joints as well as dorsal angulation. Additional acute, minimally displaced fracture of the radial head and potentially the coronoid process of the ulna with intra-articular extension. IMPRESSION: Acute fractures of the distal radius and radial head, and possibly the coronoid process of the ulna. Dedicated wrist and elbow radiographs recommended. Dictated by: Michelet Jain M.D. on 01/31/2025 at 19:41 Approved by: Michelet Jain M.D. on 01/31/2025 at 19:45 MDM Narrative Medical decision making narrative: 64-year-old female fall injury onto outstretched hand, left wrist deformity closed fracture suspected. X-ray shows Colles fracture distal radius left side with angulation and impaction. Consented for reduction. See procedure note and procedural sedation note. Tolerated single attempt at reduction with IV propofol well, splinted, acceptable reduction on postprocedure radiograph. Tolerated procedure well. Given oral hydrocodone, home pack hydrocodone, prescription for hydrocodone to use next few days. Follow up with Orthopedic surgery, contact information given for local on-call orthopedic surgeon Dr. Pereira. Returned to preprocedure baseline. Splinted, sling placed, good cap refill. Discharged home with . Discharge Plan Departure Patient Disposition: Home Clinical Impression: Distal radius fracture, right, Colles' fracture of left radius Instructions: DI for Wrist Fracture Activity Restrictions/Additional Instructions: Fall from short height, left wrist fracture with angulation and impaction on initial left wrist x-ray. IV sedation for manipulation and straightening and reduction and splinting. Improved positioning of the fracture fragments. You might still require pinning or plating or some surgical fixation, depending on Orthopedic surgery recommendations in follow up. Clinic contact information for Orthopedic surgery on-call Dr. Pereira provided, call her office Sunday morning for close follow up arrangements, and further definitive care of your wrist fracture injury. Take pain medications as needed. Keep arm in the sling, rest and elevate, apply ice if you can. Return earlier to this/nearest emergency department for any Prescriptions: New hydrocodone-acetaminophen 5-325 mg tablet 1 tab PO Q6H PRN (Reason: pain) Qty: 14 0RF hydrocodone-acetaminophen 5-325 mg tablet 1 tab PO Q6H PRN (Reason: pain) Qty: 14 0RF No Action benzonatate 200 mg capsule 200 mg PO TID PRN (Reason: cough) Qty: 30 0RF guaifenesin 1,200 mg tablet extended release 12hr 1,200 mg PO Q12H Qty: 30 0RF fluticasone propionate [Flonase Allergy Relief] 50 mcg/actuation spray,suspension 1 spray intranasal DAILY Qty: 16 2RF Rx Instructions: administer into each nostril ibuprofen 800 mg tablet 800 mg PO Q8H Qty: 30 0RF clobetasol 0.05 % ointment 1 applic topical DAILY PRN clobetasol 0.05 % ointment 1 applic topical DAILY Qty: 30 2RF cholecalciferol (vitamin D3) 50 mcg (2,000 unit) capsule 100 mcg PO DAILY estradiol 0.01 % (0.1 mg/gram) cream 1 g vaginal QWEEK Qty: 42.5 3RF hydrocortisone [Anusol-HC] 2.5 % cream with perineal applicator 1 applic IL QD-BID PRN (Reason: hemorrhoids) Qty: 30 2RF multivitamin Tablet 1 tab PO DAILY Referrals: Cathleen Pereira MD [Physician] - Corinne Alford DO [Primary Care Provider] - Stand Alone Forms: Patient Portal/API/Survey
[2025-01-31] MEDS: propofoL 200 MG/20 ML VIAL IV (21:30)
--- NOTE | 2025-01-31 21:40 | DI.RAD.S_ITS ---
PROCEDURE: XR WRIST LT MIN 3V INDICATIONS: post reduction TECHNIQUE: 3 views of the wrist were acquired. COMPARISON: [facility], , XR WRIST LT MIN 3V, 01/31/2025, 19:17. FINDINGS: Bones: Cast material obscures fine bony detail. Status post reduction with improved alignment of the previously seen distal radial fracture. Soft tissues: No suspicious soft tissue calcifications. IMPRESSION: Status post reduction with improved alignment of the previously seen distal radial fracture. Approved by: Mack Ambrose M.D. on 01/31/2025 at 22:56
[2025-01-31] MEDS: HYDROCODONE/ACET 5/325 TABLET 1 TAB PO (22:12)
[2025-01-31] MEDS: HYDROCODONE/ACET 5/325 PREPACK 1 BOTTLE MISC (22:13)
== END 2025-01-31 22:25 | disposition home or self-care (01) ==
PROVIDERS: Emergency Provider Emergency Medicine; Family Provider Family Medicine; PCP Family Medicine
DX: S52.532A Colles' fracture of left radius, initial encounter for closed fracture (principal); S52.501A Unspecified fracture of the lower end of right radius, initial encounter for closed fracture; W18.30XA Fall on same level, unspecified, initial encounter
CPT/HCPCS: 25605; 73090; 73110; 96374; 99152; 99284; J2704; J3010

== ENCOUNTER → 2025-08-29 10:07 | Outpatient (CLI) | payer MEDICARE, OTHER, SELFPAY ==
--- NOTE | 2025-08-29 10:09 | DI.MG.S_ITS ---
MM screening mammo BI: 08/29/2025. BI-RADS: 1 CLINICAL: 64-year old female for bilateral screening mammogram. Tyrer-Cuzick lifetime risk of 7.0%. No personal or first-degree family history of breast cancer. PRIOR EXAMS 06/19/2024, 06/15/2023, 06/28/2022, 06/12/2022, MAMMOGRAPHY TECHNIQUE: 2D and 3D (tomosynthesis) digital mammographic views obtained, with additional images as needed for full coverage. Current study was also evaluated with a Computer Aided Detection (CAD) system. DENSITY C. The breasts are heterogeneously dense, which may obscure small masses. MAMMOGRAPHY FINDINGS Bilateral: No suspicious mass, asymmetry, microcalcification, or other abnormality seen. IMPRESSION: * No evidence of malignancy. RECOMMENDATIONS Bilateral * Annual screening mammography. OVERALL ASSESSMENT CATEGORY BI-RADS-1: Negative. [employer] recommends annual screening mammography beginning at age 40 for women with average risk of breast cancer. ELECTRONICALLY SIGNED: Ayden Jackson M.D. on 08/31/2025 at 07:12:04 AM PT Interpreting Station ID: [id number]
== END ==
LOC: MAMMO 10:08
PROVIDERS: PCP Family Medicine; Referring Provider Family Medicine; Visit Provider Family Medicine
DX: Z12.31 Encounter for screening mammogram for malignant neoplasm of breast (principal); R92.333 Mammographic heterogeneous density, bilateral breasts
CPT/HCPCS: 77063; 77067